=== PATIENT | female | born 1975 | race American Indian/Alaskan Native ===

== ENCOUNTER 2016-12-04 20:37 | Inpatient (IN) | payer OTHER ==
[2016-12-04] MEDS ORDERED: CATAPRES ONE (21:21)
[2016-12-04] MEDS ORDERED: CATAPRES PO ONE (21:26)
[2016-12-04 21:51] LABS: Basophils % (Auto) 0.5 % (0.0-1.8); Eosinophils % (Auto) 0.4 % (0.0-4.3); Hematocrit 41.2 % (30.3-42.9); Hemoglobin 13.2 gm/dl (10.1-14.3); Mean Corpuscular HGB Conc 32 % (30-34); Mean Corpuscular Volume 79 fl (79-97); Platelet Count 325 K/mm3 (140-440); Red Blood Count 5.22 M/mm3 (3.65-5.03); Red Cell Distribution Width 13.9 % (13.2-15.2); White Blood Count 7.8 K/mm3 (4.5-11.0)
[2016-12-04 21:55] LABS: Mean Corpuscular Hemoglobin 25 pg (28-32)
[2016-12-04 22:06] LABS: Anion Gap 17 mmol/L; BUN/Creatinine Ratio 13.75; Blood Urea Nitrogen 11 mg/dL (7-17); Calcium 9.5 mg/dL (8.4-10.2); Carbon Dioxide 26 mmol/L (22-30); Chloride 98.6 mmol/L (98-107); Glucose 102 mg/dL (65-100); Potassium 3.7 mmol/L (3.6-5.0); Sodium 138 mmol/L (137-145)
[2016-12-04 22:34] LABS: Urine Drugs of Abuse Note Disclamer
[2016-12-04 23:05] LABS: Bacteria,Urine 1+ /HPF (Negative); Bilirubin,Urine NEG (Negative); Blood,Urine SM (Negative); Ketones,Urine TR mg/dL (Negative); Leukocyte Esterase,Urine MOD (Negative); Mucus,Urine 3+ /HPF; Nitrite,Urine NEG (Negative)
[2016-12-05 09:02] LABS: Albumin 4.3 g/dL (3.9-5); Albumin/Globulin Ratio 1.4 %; Bilirubin,Direct 0.2 mg/dL (0-0.2); Bilirubin,Indirect 1.2 mg/dL; Bilirubin,Total 1.4 mg/dL (0.1-1.2); Total Protein 7.4 g/dL (6.3-8.2)
[2016-12-05 09:17] LABS: INR 0.96 (0.87-1.13)
[2016-12-05 09:18] LABS: Partial Thromboplastin Time 28.8 Sec. (24.2-36.6)
--- NOTE | 2016-12-05 10:40 | History and Physical Report ---
History of Present Illness Date of examination: 12/05/16 History of present illness: Patient complains of chest tightness involving her left breast. She states that has been intermittent for quite some time. It's been more pronounced last night. However at this time is resolved. Patient admits to long-term depression. She is not having any suicidal thoughts now although she has in the past. She states that she's never had any previous workup for chest pain such as a stress test or hospitalization. She is morbidly obese. Past History Past Medical History: hypertension Medications and Allergies Allergies Allergy/AdvReac Type Severity Reaction Status Date / Time No Known Allergies Allergy Verified 08/30/15 22:09 Home Medications Medication Instructions Recorded Confirmed Last Taken Type No Known Home Medications [No 12/05/16 12/05/16 Unknown History Reported Home Medications] Review of Systems Cardiovascular: chest pain Exam - Constitutional Vitals: Temp Pulse Resp BP Pulse Ox 97.7 F 72 14 110/57 98 12/05/16 08:26 12/05/16 08:26 12/05/16 08:26 12/05/16 08:26 12/05/16 08:26 General appearance: Present: mild distress - EENT Eyes: Present: PERRL, EOM intact ENT: hearing intact, clear oral mucosa - Neck Neck: Present: supple, normal ROM - Respiratory Respiratory effort: normal Respiratory: bilateral: CTA - Cardiovascular Rhythm: regular Heart Sounds: Present: S1 & S2 - Extremities Extremities: no ischemia, No edema - Abdominal General gastrointestinal: Present: soft, non-tender, non-distended, normal bowel sounds - Musculoskeletal Musculoskeletal: strength equal bilaterally - Psychiatric Psychiatric: appropriate mood/affect, intact judgment & insight - Neurologic Neurologic: CNII-XII intact Results - Labs CBC & Chem 7: 12/04/16 21:32 12/04/16 21:32 Labs: Laboratory Last Values WBC 7.8 K/mm3 (4.5-11.0) 12/04/16 21:32 RBC 5.22 M/mm3 (3.65-5.03) H 12/04/16 21:32 Hgb 13.2 gm/dl (10.1-14.3) 12/04/16 21:32 Hct 41.2 % (30.3-42.9) 12/04/16 21:32 MCV 79 fl (79-97) 12/04/16 21: MCH 25 pg (28-32) L 12/04/16 21: MCHC 32 % (30-34) 12/04/16 21: RDW 13.9 % (13.2-15.2) 12/04/16 21: Plt Count 325 K/mm3 (140-440) 12/04/16 21: Lymph % (Auto) 28.6 % (13.4-35.0) 12/04/16 21: [place] % (Auto) 7.7 % (0.0-7.3) H 12/04/16 21: Eos % (Auto) 0.4 % (0.0-4.3) 12/04/16: Baso % (Auto) 0.5 % (0.0-1.8) 12/04/16 21: Lymph # 2.2 K/mm3 (1.2-5.4) 12/04/16 21: [place] # 0.6 K/mm3 (0.0-0.8) 12/04/16 21: Eos # 0.0 K/mm3 (0.0-0.4) 12/04/16: Baso # 0.0 K/mm3 (0.0-0.1) 12/04/16 21: Seg Neutrophils % 62.8 % (40.0-70.0) 12/04/16 21: Seg Neutrophils # 4.9 K/mm3 (1.8-7.7) 12/04/16 21: PT 12.7 Sec. (12.2-14.9) 12/05/16 08:27 INR 0.96 (0.87-1.13) 12/05/16 08:27 APTT 28.8 Sec. (24.2-36.6) 12/05/16 08:27 Potassium 3.7 mmol/L (3.6-5.0) 12/04/16 21: Chloride 98.6 mmol/L (98-107) 12/04/16 21: Carbon Dioxide 26 mmol/L (22-30) 12/04/16 21:32 Anion Gap 17 mmol/L 12/04/16 21:32 BUN 11 mg/dL (7-17) 12/04/16 21:32 Creatinine 0.8 mg/dL (0.7-1.2) 12/04/16 21:32 Estimated GFR > 60 ml/min 12/04/16 21:32 BUN/Creatinine Ratio 13.75 % 12/04/16 21:32 Glucose 102 mg/dL (65-100) H 12/04/16 21:32 Calcium 9.5 mg/dL (8.4-10.2) 12/04/16 21:32 Magnesium 2.0 mg/dL (1.7-2.3) 12/05/16 08:27 Total Bilirubin 1.4 mg/dL (0.1-1.2) H 12/05/16 08:27 Direct Bilirubin 0.2 mg/dL (0-0.2) 12/05/16 08:27 Indirect Bilirubin 1.2 mg/dL 12/05/16 08:27 AST 18 units/L (5-40) 12/05/16 08:27 ALT 20 units/L (7-56) 12/05/16 08:27 Alkaline Phosphatase 72 units/L (35-129) 12/05/16 08:27 Troponin T < 0.010 ng/mL (0.00-0.029) 12/05/16 02:55 NT-Pro-B Natriuret Pep 13.02 pg/mL (0-450) 12/05/16 08:27 Total Protein 7.4 g/dL (6.3-8.2) 12/05/16 08:27 Albumin 4.3 g/dL (3.9-5) 12/05/16 08:27 Albumin/Globulin Ratio 1.4 % 12/05/16 08:27 Urine Color [place] (Yellow) 12/04/16 22:22 Urine Turbidity Cloudy (Clear) 12/04/16 22:22 Urine pH 5.0 (5.0-7.0) 12/04/16 22:22 Ur Specific [place] 1.025 (1.003-1.030) 12/04/16 22:22 Urine Protein 100 mg/dl mg/dL (Negative) 12/04/16 22:22 Urine Glucose (UA) Neg mg/dL (Negative) 12/04/16 22:22 Urine Ketones Tr mg/dL (Negative) 12/04/16 22:22 Urine Blood Sm (Negative) 03/25/17 22:22 Urine Nitrite Neg (Negative) 12/04/16 22:22 Urine Bilirubin Neg (Negative) 12/04/16 22:22 Urine Urobilinogen 2.0 mg/dL (<2.0) 12/04/16 22:22 Ur Leukocyte Esterase Mod (Negative) 12/04/16 22:22 Urine WBC (Auto) 150.0 /HPF (0.0-6.0) H 12/04/16 22:22 Urine RBC (Auto) 125.0 /HPF (0.0-6.0) 12/04/16 22:22 U Epithel Cells (Auto) 18.0 /HPF (0-13.0) H 12/04/16 22:22 Urine Bacteria (Auto) 1+ /HPF (Negative) 12/04/16 22:22 Hyaline Casts 4 /LPF 12/04/16 22:22 Urine Mucus 3+ /HPF 12/04/16 22:22 Urine HCG, Qual Negative (Negative) 12/04/16 22:22 Urine Opiates Screen Presumptive negative 12/04/16 22:22 Urine Methadone Screen Presumptive negative 12/04/16 22:22 Ur Barbiturates Screen Presumptive negative 12/04/16 22:22 Ur Phencyclidine Scrn Presumptive negative 12/04/16 22:22 Ur Amphetamines Screen Presumptive positive 12/04/16 22:22 U Benzodiazepines Scrn Presumptive negative 12/04/16 22:22 Urine Cocaine Screen Presumptive negative 12/04/16 22:22 U Marijuana (THC) Screen Presumptive negative 12/04/16 22:22 Drugs of Abuse Note Disclamer 12/04/16 22:22 Assessment and Plan - Patient Problems (1) Chest pain Current Visit: Yes Status: Acute Qualifiers: Chest pain type: unspecified Qualified Code(s): R07.9 - Chest pain, unspecified Plan to address problem: Admit to Telemetry, Cardiology Consult, Lexiscan, Follow Troponins, ASA Beta- blockers (2) UTI (urinary tract infection) Current Visit: Yes Status: Acute Qualifiers: Urinary tract infection type: site unspecified Hematuria presence: without hematuria Indwelling urinary catheter type: I Encounter type: E Qualified Code(s): N39.0 - Urinary tract infection, site not specified Plan to address problem: Start IV Abx, Follow cultures (3) Malignant hypertension Current Visit: No Status: Acute Plan to address problem: Blood pressure much better controlled after receiving Clonidine
[2016-12-05] MEDS ORDERED: DULCOLAX PR PRN (11:00)
[2016-12-05] MEDS ORDERED: LOVENOX SUB-Q SCH (11:00)
[2016-12-05] MEDS ORDERED: NACL 0.9% 1000 ML 1,000 ML IV SCH (11:00)
[2016-12-05] MEDS ORDERED: PERCOCET 5/325 PO PRN (11:00)
[2016-12-05] MEDS ORDERED: TYLENOL PO PRN (11:00)
[2016-12-05] MEDS ORDERED: SODIUM CHLORIDE FLUSH SYRINGE 10 ML IV PRN (11:00)
[2016-12-05] MEDS ORDERED: MILK OF MAGNESIA PO PRN (11:00)
[2016-12-05] MEDS ORDERED: ZOFRAN IV PRN (11:00)
[2016-12-05] MEDS ORDERED: MORPHINE IV PRN (11:00)
[2016-12-05 12:02] LABS: Creatine Kinase MB 1.1 ng/mL (0.0-4.0)
[2016-12-05 12:03] LABS: Creatine Kinase 71 units/L (30-135)
[2016-12-05] MEDS: LOVENOX SUB-Q SCH (12:34)
--- NOTE | 2016-12-05 13:09 | XRay Report ---
AP CHEST : 12/05/16 CLINICAL: Chest pain. COMPARISON:08/31/15 FINDINGS: Normal heart and pulmonary vessels. The lungs are normally expanded and clear. The bones and soft tissues are unremarkable. IMPRESSION: Normal.
--- NOTE | 2016-12-05 13:22 | Consultation ---
History of Present Illness Consult date: 12/05/16 Consult reason: chest pain History of present illness: Patient is presenting with acute onset chest pain associated with increased anxiety. Patient has been taking ativan for 2-3 months and recently decided to stop doing that. Since then she has been very agitated and has noticed tremors and increased anxiety. ECG is normal. Haylee are normal. UDS is positive for amphetamines although patient denies meth or ectasy abuse. Patient does not take any ADHD medications. Past History Past Medical History: hypertension, other (Anxiety disorder) Past Surgical History: No surgical history Social history: no significant social history Family history: no significant family history Medications and Allergies Allergies Allergy/AdvReac Type Severity Reaction Status Date / Time No Known Allergies Allergy Verified 08/30/15 22:09 Home Medications Medication Instructions Recorded Confirmed Last Taken Type No Known Home Medications [No 12/05/16 12/05/16 Unknown History Reported Home Medications] Active Meds: Active Medications Acetaminophen (Tylenol) 650 mg PO Q4H PRN PRN Reason: Pain MILD(1-3)/Fever >100.5/[place] Aspirin (Ecotrin) 325 mg PO QDAY DEONTE Bisacodyl (Dulcolax) 10 mg NM QDAY PRN PRN Reason: Constipation unrelieved by MOM Enoxaparin Sodium (Lovenox) 40 mg SUB-Q QDAY@1000 DEONTE Last Admin: 12/05/16 12:34 Dose: 40 mg Sodium Chloride (Nacl 0.9% 1000 Ml) 1,000 mls @ 100 mls/hr IV DIRECT DEONTE Magnesium Hydroxide (Milk Of Magnesia) 30 ml PO Q4H PRN PRN Reason: Constipation Morphine Sulfate (Morphine) 2 mg IV Q4H PRN PRN Reason: Pain, Moderate (4-6) Ondansetron HCl (Zofran) 4 mg IV Q8H PRN PRN Reason: N/V unrelieved by Reglan Oxycodone/Acetaminophen (Percocet 5/325) 1 tab PO Q6H PRN PRN Reason: Pain, Moderate (4-6) Sodium Chloride (Sodium Chloride Flush Syringe 10 Ml) 10 ml IV PRN PRN PRN Reason: LINE FLUSH Review of Systems All systems: negative Physical Examination Vital Signs Temp Pulse Resp BP Pulse Ox 98.6 F 116 H 18 190/124 98 12/04/16 21:14 12/04/16 21:14 12/04/16 21:14 12/04/16 21:14 12/04/16 21:14 General appearance: no acute distress HEENT: Positive: PERRL Neck: Positive: neck supple Cardiac: Positive: Reg Rate and Rhythm Lungs: Positive: Normal Exam Abdomen: Positive: Soft Extremities: Present: normal Results 12/04/16 21:32 12/04/16 21:32 Cardiac Enzymes 12/05/16 Range/Units 11:29 CK-MB (CK-2) 1.1 (0.0-4.0) ng/mL Lipids 12/05/16 Range/Units 11:29 Triglycerides 101 (2-149) mg/dL Cholesterol 191 (50-199) mg/dL HDL Cholesterol 38 L (40-59) mg/dL Cholesterol/HDL Ratio 5.02 % EKG interpretations - Telemetry EKG Rhythm: Sinus Rhythm Assessment and Plan Atypical chest pain Normal ECG Negative Haylee Normal MPI and chest CTA in 2014 Systemic Hypertension Morbid obesity Anxiety disorder Benzodiazepine withdrawal UTI Evidence of amphetamine on the urine drug screen Recommendations: Agree with stress testing in am for atypical chest pain Advised against the use of amphetamines
--- NOTE | 2016-12-05 14:10 | Emergency Department Report ---
ED Chest Pain HPI - General Chief Complaint: Chest Pain Stated Complaint: ANXIETY, DEPRESSION, CHEST PAIN Time Seen by Provider: 12/05/16 08:13 Source: patient Mode of arrival: Ambulatory Limitations: No Limitations - History of Present Illness Initial Comments: Patient complains of chest tightness involving her left breast. She states that has been intermittent for quite some time. It's been more pronounced last night. However at this time is resolved. Patient admits to long-term depression. She is not having any suicidal thoughts now although she has in the past. She states that she's never had any previous workup for chest pain such as a stress test or hospitalization. She is morbidly obese. MD Complaint: chest pain -: week(s) Onset: during rest Pain Location: left chest Pain Radiation: none Severity: moderate Quality: tightness Consistency: intermittent, now resolved Improves With: nothing Worsens With: nothing re: nausea, dyspnea. denies: vomting, diaphoresis Other Symptoms: denies: cough, fever, syncope Treatments Prior to Arrival: none - Related Data Home Medications Medication Instructions Recorded Confirmed Last Taken No Known Home Medications [No 12/05/16 12/05/16 Unknown Reported Home Medications] Allergies Allergy/AdvReac Type Severity Reaction Status Date / Time No Known Allergies Allergy Verified 08/30/15 22:09 MADHAVI score - Madhavi Score Age > 65: (0) No Aspirin use within the Past 7 Days: (0) No 3 or more CAD Risk Factors: (1) Yes 2 or more Angina events in past 24 hrs: (0) No Known CAD with more than 50% Stenosis: (0) No Elevated Cardiac Markers: (0) No ST Deviation Greater than 0.5mm: (0) No MADHAVI Score: 1 ED Review of Systems ROS: Stated complaint: ANXIETY, DEPRESSION, CHEST PAIN Other details as noted in HPI Constitutional: denies: chills, fever Eyes: denies: eye pain, eye discharge, vision change ENT: denies: ear pain, throat pain Respiratory: shortness of breath. denies: cough, wheezing Cardiovascular: chest pain. denies: palpitations Endocrine: no symptoms reported Gastrointestinal: denies: abdominal pain, nausea, diarrhea Genitourinary: denies: urgency, dysuria, discharge Musculoskeletal: denies: back pain, joint swelling, arthralgia Skin: denies: rash, lesions Neurological: denies: headache, weakness, paresthesias Psychiatric: depression. denies: anxiety Hematological/Lymphatic: denies: easy bleeding, easy bruising ED Past Medical Hx - Past Medical History Hx Hypertension: Yes Hx Congestive Heart Failure: No Hx Diabetes: No Hx Psychiatric Treatment: Yes (anxiety,depression) Hx Asthma: No Hx COPD: No - Surgical History Additional Surgical History: csection 2004 - Social History Smoking Status: Never Smoker Substance Use Type: None - Medications Home Medications: Home Medications Medication Instructions Recorded Confirmed Last Taken Type No Known Home Medications [No 12/05/16 12/05/16 Unknown History Reported Home Medications] ED Physical Exam - General Limitations: No Limitations General appearance: alert, in no apparent distress - Head Head exam: Present: atraumatic, normocephalic - Eye Eye exam: Present: normal appearance, PERRL, EOMI. Absent: scleral icterus - ENT ENT exam: Present: normal exam, mucous membranes moist - Neck Neck exam: Present: normal inspection. Absent: tenderness, meningismus - Respiratory Respiratory exam: Present: normal lung sounds bilaterally. Absent: respiratory distress - Cardiovascular Cardiovascular Exam: Present: regular rate, normal rhythm. Absent: systolic murmur, diastolic murmur, rubs, gallop - GI/Abdominal GI/Abdominal exam: Present: soft, normal bowel sounds. Absent: distended, tenderness, guarding, rebound, rigid - Extremities Exam Extremities exam: Present: pedal edema. Absent: calf tenderness - Back Exam Back exam: Present: normal inspection - Neurological Exam Neurological exam: Present: alert, oriented X3, CN II-XII intact. Absent: motor sensory deficit - Psychiatric Psychiatric exam: Present: normal affect, normal mood - Skin Skin exam: Present: warm, dry, intact, normal color. Absent: rash ED Course Vital Signs 12/04/16 12/04/16 12/04/16 21:14 21:30 22:56 Temperature 98.6 F 97.6 F Pulse Rate 116 H 116 H 91 H Respiratory 18 18 Rate Blood Pressure 190/124 190/124 155/96 Blood Pressure [Right] O2 Sat by Pulse 98 99 Oximetry 12/05/16 12/05/16 12/05/16 07:42 08:00 08:15 Temperature Pulse Rate 66 Respiratory 20 18 Rate Blood Pressure 113/58 Blood Pressure [Right] O2 Sat by Pulse 99 97 98 Oximetry 0312/05/16 12/05/16 08:26 08:30 09:01 Temperature 97.7 F Pulse Rate 72 76 69 Respiratory 14 9 L 21 Rate Blood Pressure 114/65 114/65 Blood Pressure 110/57 [Right] O2 Sat by Pulse 98 82 L 97 Oximetry 12/05/16 12/05/16 12/05/16 09:31 10:01 10:31 Temperature Pulse Rate 65 65 79 Respiratory 18 19 15 Rate Blood Pressure 114/65 114/65 114/65 Blood Pressure [Right] O2 Sat by Pulse 100 97 96 Oximetry 12/05/16 12/05/16 12/05/16 11:00 11:31 12:00 Temperature Pulse Rate 84 75 69 Respiratory 15 19 19 Rate Blood Pressure 144/77 133/68 143/74 Blood Pressure [Right] O2 Sat by Pulse 98 100 99 Oximetry 12/05/16 12/05/16 12:31 13:01 Temperature Pulse Rate 83 68 Respiratory 10 L 22 Rate Blood Pressure 136/82 124/73 Blood Pressure [Right] O2 Sat by Pulse 97 96 Oximetry ED Medical Decision Making - Lab Data Result diagrams: 12/04/16 21:32 12/04/16 21:32 Laboratory Results - last 24 hr 12/04/16 12/04/16 12/04/16 21:32 21:32 22:22 WBC 7.8 RBC 5.22 H Hgb 13.2 Hct 41.2 MCV 79 MCH 25 L MCHC 32 RDW 13.9 Plt Count 325 Lymph % (Auto) 28.6 [place] % (Auto) 7.7 H Eos % (Auto) 0.4 Baso % (Auto) 0.5 Lymph # 2.2 [place] # 0.6 Eos # 0.0 Baso # 0.0 Seg Neutrophils % 62.8 Seg Neutrophils # 4.9 PT INR APTT Potassium 3.7 Chloride 98.6 Carbon Dioxide 26 Anion Gap 17 BUN 11 Creatinine 0.8 Estimated GFR > 60 BUN/Creatinine Ratio 13.75 Glucose 102 H Calcium 9.5 Magnesium Total Bilirubin Direct Bilirubin Indirect Bilirubin AST ALT Alkaline Phosphatase Total Creatine Kinase CK-MB (CK-2) CK-MB (CK-2) Rel Index Troponin T < 0.010 NT-Pro-B Natriuret Pep Total Protein Albumin Albumin/Globulin Ratio Triglycerides Cholesterol LDL Cholesterol Direct HDL Cholesterol Cholesterol/HDL Ratio Urine Color [place] Urine Turbidity Cloudy Urine pH 5.0 Ur Specific [place] 1.025 Urine Protein 100 mg/dl Urine Glucose (UA) Neg Urine Ketones Tr Urine Blood Sm Urine Nitrite Neg Urine Bilirubin Neg Urine Urobilinogen 2.0 Ur Leukocyte Esterase Mod Urine WBC (Auto) 150.0 H Urine RBC (Auto) 125.0 U Epithel Cells (Auto) 18.0 H Urine Bacteria (Auto) 1+ Hyaline Casts 4 Urine Mucus 3+ Urine HCG, Qual Negative Urine Opiates Screen Urine Methadone Screen Ur Barbiturates Screen Ur Phencyclidine Scrn Ur Amphetamines Screen U Benzodiazepines Scrn Urine Cocaine Screen U Marijuana (THC) Screen Drugs of Abuse Note 12/04/16 12/04/16 12/05/16 22:22 23:07 02:55 WBC RBC Hgb Hct MCV MCH MCHC RDW Plt Count Lymph % (Auto) [place] % (Auto) Eos % (Auto) Baso % (Auto) Lymph # [place] # Eos # Baso # Seg Neutrophils % Seg Neutrophils # PT INR APTT Potassium Chloride Carbon Dioxide Anion Gap BUN Creatinine Estimated GFR BUN/Creatinine Ratio Glucose Calcium Magnesium Total Bilirubin Direct Bilirubin Indirect Bilirubin AST ALT Alkaline Phosphatase Total Creatine Kinase CK-MB (CK-2) CK-MB (CK-2) Rel Index Troponin T < 0.010 < 0.010 NT-Pro-B Natriuret Pep Total Protein Albumin Albumin/Globulin Ratio Triglycerides Cholesterol LDL Cholesterol Direct HDL Cholesterol Cholesterol/HDL Ratio Urine Color Urine Turbidity Urine pH Ur Specific [place] Urine Protein Urine Glucose (UA) Urine Ketones Urine Blood Urine Nitrite Urine Bilirubin Urine Urobilinogen Ur Leukocyte Esterase Urine WBC (Auto) Urine RBC (Auto) U Epithel Cells (Auto) Urine Bacteria (Auto) Hyaline Casts Urine Mucus Urine HCG, Qual Urine Opiates Screen Presumptive negative Urine Methadone Screen Presumptive negative Ur Barbiturates Screen Presumptive negative Ur Phencyclidine Scrn Presumptive negative Ur Amphetamines Screen Presumptive positive U Benzodiazepines Scrn Presumptive negative Urine Cocaine Screen Presumptive negative U Marijuana (THC) Screen Presumptive negative Drugs of Abuse Note Disclamer 12/05/16 12/05/16 12/05/16 08:27 08:27 11:29 WBC RBC Hgb Hct MCV MCH MCHC RDW Plt Count Lymph % (Auto) [place] % (Auto) Eos % (Auto) Baso % (Auto) Lymph # [place] # Eos # Baso # Seg Neutrophils % Seg Neutrophils # PT 12.7 INR 0.96 APTT 28.8 Potassium Chloride Carbon Dioxide Anion Gap BUN Creatinine Estimated GFR BUN/Creatinine Ratio Glucose Calcium Magnesium 2.0 Total Bilirubin 1.4 H Direct Bilirubin 0.2 Indirect Bilirubin 1.2 AST 18 ALT 20 Alkaline Phosphatase 72 Total Creatine Kinase CK-MB (CK-2) CK-MB (CK-2) Rel Index Troponin T NT-Pro-B Natriuret Pep 13.02 Total Protein 7.4 Albumin 4.3 Albumin/Globulin Ratio 1.4 Triglycerides 101 Cholesterol 191 LDL Cholesterol Direct 133 H HDL Cholesterol 38 L Cholesterol/HDL Ratio 5.02 Urine Color Urine Turbidity Urine pH Ur Specific [place] Urine Protein Urine Glucose (UA) Urine Ketones Urine Blood Urine Nitrite Urine Bilirubin Urine Urobilinogen Ur Leukocyte Esterase Urine WBC (Auto) Urine RBC (Auto) U Epithel Cells (Auto) Urine Bacteria (Auto) Hyaline Casts Urine Mucus Urine HCG, Qual Urine Opiates Screen Urine Methadone Screen Ur Barbiturates Screen Ur Phencyclidine Scrn Ur Amphetamines Screen U Benzodiazepines Scrn Urine Cocaine Screen U Marijuana (THC) Screen Drugs of Abuse Note 12/05/16 11:29 WBC RBC Hgb Hct MCV MCH MCHC RDW Plt Count Lymph % (Auto) [place] % (Auto) Eos % (Auto) Baso % (Auto) Lymph # [place] # Eos # Baso # Seg Neutrophils % Seg Neutrophils # PT INR APTT Potassium Chloride Carbon Dioxide Anion Gap BUN Creatinine Estimated GFR BUN/Creatinine Ratio Glucose Calcium Magnesium Total Bilirubin Direct Bilirubin Indirect Bilirubin AST ALT Alkaline Phosphatase Total Creatine Kinase 71 CK-MB (CK-2) 1.1 CK-MB (CK-2) Rel Index 1.5 Troponin T < 0.010 NT-Pro-B Natriuret Pep Total Protein Albumin Albumin/Globulin Ratio Triglycerides Cholesterol LDL Cholesterol Direct HDL Cholesterol Cholesterol/HDL Ratio Urine Color Urine Turbidity Urine pH Ur Specific [place] Urine Protein Urine Glucose (UA) Urine Ketones Urine Blood Urine Nitrite Urine Bilirubin Urine Urobilinogen Ur Leukocyte Esterase Urine WBC (Auto) Urine RBC (Auto) U Epithel Cells (Auto) Urine Bacteria (Auto) Hyaline Casts Urine Mucus Urine HCG, Qual Urine Opiates Screen Urine Methadone Screen Ur Barbiturates Screen Ur Phencyclidine Scrn Ur Amphetamines Screen U Benzodiazepines Scrn Urine Cocaine Screen U Marijuana (THC) Screen Drugs of Abuse Note Sodium 138 - EKG Data -: EKG Interpreted by Me EKG shows normal: sinus rhythm, axis, intervals, QRS complexes, ST-T waves Rate: normal - EKG Data Interpretation: no acute changes - Radiology Data Radiology results: report reviewed interpreted by me: chest x-ray showed no acute process Critical care attestation.: If time is entered above; I have spent that time in minutes in the direct care of this critically ill patient, excluding procedure time. ED Disposition Clinical Impression: Depression Chest pain Qualifiers: Chest pain type: unspecified Qualified Code(s): R07.9 - Chest pain, unspecified Morbid obesity Qualifiers: Obesity type: due to excess calories Qualified Code(s): E66.01 - Morbid (severe ) obesity due to excess calories UTI (urinary tract infection) Qualifiers: Urinary tract infection type: site unspecified Hematuria presence: without hematuria Qualified Code(s): N39.0 - Urinary tract infection, site not specified Disposition: OP ADMITTED IP TO THIS HOSP Is pt being admited?: Yes Does the pt Need Aspirin: Yes Time of Disposition: 14:19
[2016-12-05 15:15] LABS: Creatine Kinase MB 1.1 ng/mL (0.0-4.0)
[2016-12-05 15:16] LABS: Creatine Kinase 67 units/L (30-135)
[2016-12-05] MEDS: MACROBID PO SCH ×2 (17:41→22:16)
[2016-12-05 18:14] LABS: Creatine Kinase MB < 1.0 ng/mL (0.0-4.0)
[2016-12-05 18:38] LABS: Creatine Kinase 64 units/L (30-135)
[2016-12-05] MEDS: COREG PO SCH (22:16)
[2016-12-05] MEDS: LEVAQUIN 500MG/100ML 500 MG/100 ML BAG IV SCH (22:17)
[2016-12-06 05:42] LABS: Basophils % (Auto) 0.5 % (0.0-1.8); Eosinophils % (Auto) 1.4 % (0.0-4.3); Hematocrit 36.4 % (30.3-42.9); Hemoglobin 11.9 gm/dl (10.1-14.3); Mean Corpuscular HGB Conc 33 % (30-34); Mean Corpuscular Volume 79 fl (79-97); Platelet Count 261 K/mm3 (140-440); Red Blood Count 4.64 M/mm3 (3.65-5.03); Red Cell Distribution Width 13.6 % (13.2-15.2)
[2016-12-06 05:58] LABS: Alanine Aminotransferase 21 units/L (7-56); Albumin 3.3 g/dL (3.9-5); Albumin/Globulin Ratio 1.1 %; Alkaline Phosphatase 64 units/L (35-129); Anion Gap 17 mmol/L; BUN/Creatinine Ratio 13.75; Bilirubin,Total 1.1 mg/dL (0.1-1.2); Blood Urea Nitrogen 11 mg/dL (7-17); Calcium 8.6 mg/dL (8.4-10.2); Carbon Dioxide 26 mmol/L (22-30); Chloride 103.1 mmol/L (98-107); Glucose 111 mg/dL (65-100); Potassium 3.2 mmol/L (3.6-5.0); Sodium 143 mmol/L (137-145); Total Protein 6.3 g/dL (6.3-8.2)
[2016-12-06 06:03] LABS: Mean Corpuscular Hemoglobin 26 pg (28-32)
--- NOTE | 2016-12-06 07:48 | Discharge Summary ---
Providers - Providers Date of Admission: 12/05/16 10:41 Date of discharge: 12/06/16 Attending physician: BERTHA MACIAS Primary care physician: [facility] Hospitalization Condition: Stable Hospital course: Patient complains of chest tightness involving her left breast. She states that has been intermittent for quite some time. It's been more pronounced last night. However at this time is resolved. Patient admits to long-term depression. She is not having any suicidal thoughts now although she has in the past. She states that she's never had any previous workup for chest pain such as a stress test or hospitalization. She is morbidly obese. Disposition: DISCHARGED TO HOME OR SELFCARE - Discharge Diagnoses (1) Chest pain Status: Acute Qualifiers: Chest pain type: unspecified Qualified Code(s): R07.9 - Chest pain, unspecified (2) UTI (urinary tract infection) Status: Acute Qualifiers: Urinary tract infection type: site unspecified Hematuria presence: without hematuria Indwelling urinary catheter type: I Encounter type: E Qualified Code(s): N39.0 - Urinary tract infection, site not specified (3) Malignant hypertension Status: Acute Core Measure Documentation - Palliative Care Palliative Care/ Comfort Measures: Not Applicable - Core Measures Any of the following diagnoses?: none Exam - Constitutional Vitals: Temp Pulse Resp BP Pulse Ox 98.1 F 77 20 142/65 96 12/06/16 06:00 12/06/16 06:00 12/06/16 06:00 12/06/16 06:00 12/06/16 06:00 General appearance: Present: no acute distress - EENT Eyes: Present: PERRL, EOM intact ENT: hearing intact, clear oral mucosa - Neck Neck: Present: supple, normal ROM - Respiratory Respiratory effort: normal Respiratory: bilateral: CTA - Cardiovascular Rhythm: regular Heart Sounds: Present: S1 & S2 - Extremities Extremities: no ischemia, No edema - Abdominal General gastrointestinal: Present: soft, non-tender, non-distended, normal bowel sounds - Musculoskeletal Musculoskeletal: strength equal bilaterally - Psychiatric Psychiatric: appropriate mood/affect, intact judgment & insight - Neurologic Neurologic: CNII-XII intact, moves all extremities Plan Activity: advance as tolerated Weight Bearing Status: Weight Bear as Tolerated Diet: low fat, low cholesterol, low salt Follow up with: PRIMARY CARE, [Primary Care Provider] - 7 Days Prescriptions: Aspirin EC [Aspirin Enteric Coated TAB] 325 mg PO QDAY #30 tablet Carvedilol [Coreg] 3.125 mg PO BID #60 tablet LORazepam [Ativan] 0.5 mg PO Q8H PRN #30 tablet PRN Reason: Anxiety oxyCODONE /ACETAMINOPHEN [Percocet 5/325 mg] 1 tab PO Q6H PRN #20 tablet PRN Reason: Pain, Moderate (4-6)
[2016-12-06] MEDS ORDERED: ATIVAN PO PRN (09:29)
[2016-12-06] MEDS ORDERED: LEXISCAN IV NR (09:43)
[2016-12-06] MEDS ORDERED: ECOTRIN PO SCH (10:00)
[2016-12-06 10:51] VITALS: BP 205/112
[2016-12-06] MEDS: LEVAQUIN 500MG/100ML 500 MG/100 ML BAG IV SCH (11:18)
[2016-12-06] MEDS: MACROBID PO SCH (11:18)
[2016-12-06] MEDS: COREG PO SCH (11:19)
[2016-12-06] MEDS: LOVENOX SUB-Q SCH (11:19)
[2016-12-06] MEDS ORDERED: PNEUMOVAX 23 IM ONE (12:00)
[2016-12-06] MEDS ORDERED: FLUARIX QUAD 2016-2017(36 MOS+) IM ONE (12:00)
[2016-12-06] MEDS ORDERED: K-DUR PO ONE (13:30)
--- NOTE | 2016-12-06 13:47 | Admit Criteria Form ---
Admission Criteria Documentation: CARDIOLOGY GRG Clinical Indications for Admission to Inpatient Care ( Place 'X' for any and all applicable criteria): Hospital admission is needed for appropriate care of the patient because of ANY ONE of the following (1): [ ] I. Hemodynamic instability as indicated by ALL of the following (1)(2)(3) (4)(5) [ ]a) Vital signs or other findings not as expected for chronic patient condition or baseline [ ]b) Instability indicated by ANY ONE of the following: [ ]i) Hypotension [ ]ii) Symptomatic Tachycardia unresponsive to treatment ( e.g., analgesia, fluids, sedation as indicated) [ ]iii) Inadequate perfusion indicated by ANY ONE of the following: [ ] 1) Lactic acidosis (> 2 mmol/L) [ ] 2) New abnormal capillary refill (> 3 seconds) [ ] 3) Reduced urine output [ ] 4) New altered mental status [ ]iv) Orthostatic vital sign changes unresponsive to treatment (e.g., fluids) [ ]v) IV inotropic or vasopressor medication required to maintain adequate blood pressure or perfusion [ ] II. Severe heart failure as indicated by ANY ONE of the following(17)(18) [ ]a) Respiratory distress [ ]b) Hypotension [ ]c) Anasarca (refractory to outpatient therapy) [ ]d) Cardiac arrhythmias of immediate concern [ ]e) Myocardial ischemia [ ] III. Cardiac arrhythmias or findings of immediate concern indicated by ANY ONE of the following (19)(20): [ ] a) Heart rhythms that are inherently dangerous or unstable indicated by ANY ONE of the following (21)(22)(23): [ ] i) Resuscitated ventricular fibrillation or cardiac arrest [ ] ii) Ventricular escape rhythm [ ] iii) Sustained ventricular tachycardia (30 seconds or more of ventricular rhythm at greater than 100 beats per minute) [ ] iv) Nonsustained ventricular tachycardia and ANY ONE of the following: [ ] 1) Suspected cardiac ischemia as cause or consequence of ventricular tachycardia [ ] 2) In setting of acute myocarditis [ ] b) Unstable cardiac conduction defects indicated by ANY ONE of the following(23)(24)(25) [ ] i) Type II second-degree atrioventricular block [ ]ii) Third-degree atrioventricular block [ ]iii) New-onset left bundle branch block with suspected myocardial ischemia [ ]c) Any heart rhythm and ANY ONE of the following (21)(22)(26)(27) (28) [ ] i) Continuous long-term ECG monitoring needed (e.g., initiation of drug requiring monitoring for more than 24 hours) [ ] ii) Patient has automatic implanted cardioverter defibrillator that is repeatedly firing, malfunctioning, or in need of immediate adjustment of settings beyond the scope of ambulatory or observation care [ ]d) Heart rhythms of concern due to ANY ONE of the following: [ ] i) Hypotension [ ] ii) Respiratory distress [ ] iii) Association with other significant symptoms (e.g., bradycardia with syncope or ongoing dizziness, supraventricular tachycardia with chest pain (14)(15)(17) [ ] IV. Monitoring for cardiac contusion beyond the scope of observation care needed [A](30)(31)(32) [ ] V. Surgical or device complication (e.g., valve replacement complication , pacemaker dysfunction) (35)(41)(44)(45)(46) [ ] . Inpatient palliative care needed. [B](49) Also use Inpatient Palliative Care Criteria [ ] VII. Nonbacterial thrombotic (marantic) endocarditis (36)(43)(47)(48) [X] VIII. Cardiology condition, symptom, or finding for which emergency and observation care has failed or are not considered appropriate. [ ] IX. Acute valvular disease requiring inpatient as indicated by ANY ONE of the following (41) [ ]a) Acute valvular regurgitation (42) [ ]b) Noninfectious valvulitis (43) [ ]c) Obstructive valve thrombosis [ ]d) Paravalvular leak [ ]e) Other significant valvular disorder remaining after emergency or observation level of care (as appropriate) [ ]X. Pericardial disease requiring inpatient treatment as indicated by ANY ONE of the following (33)(34)(35)(36)(37) [ ]a) Suspected tamponade (38)(39)(40) [ ]b) Hemopericardium [ ]c) Other significant pericardial disorder remaining after emergency or observation level of care (as appropriate) [ ] XI. Cardiac ischemia beyond scope of emergency and observation care. [ ] XII. Hypertension requiring inpatient treatment as indicated by ANY ONE of the following (6)(7)(8) [ ]a) SBP greater than 220 mm Hg or DBP greater than 120 mmHg despite treatment [ ]b) SBP greater than 140 mm Hg or DBP greater than 100 mm Hg with evidence of acute end organ damage as indicated by ANY ONE of the following [ ] i) Altered mental status [ ] ii) Acute renal failure as indicated by new onset of ANY ONE of the following (9)(10)(11)(12)(13) [ ]1) 3-fold rise in serum creatinine from baseline [ ]2) Serum creatinine greater than 4 mg/dL ( 354 micromoles/L) with acute rise greater than 0.5 mg/dL (44.2 micromoles/L) [ ]3) Reduction of more than 75% in estimated glomerular filtration rate from baseline [ ]4) Estimated glomerular filtration rate less than 35 mL/min/1.73m2 (0.59 mL/sec/1.73m2) in child up to 18 years of age [ ]5) Cessation of urine output indicated by ALL of the following [ ]A. Adequate volume status [ ]B. Inadequate urine output as indicated by ANY ONE of the following [ ]a. Urine output less than 0.3 mL/kg/hr for 24 hours [ ]b. Anuria (urine output less than 0.1 mL/kg/hr) for 12 hours [ ] iii) Aortic dissection [ ] iv) Myocardial Ischemia [ ] v) Left ventricular heart failure [ ]vi) Retinal Hemorrhage [ ]vii) Other significant finding [ ]c) Hypertension in child requiring inpatient treatment as indicated by ALL of the following(14)(15)(16) [ ] i) Outpatient treatment not effective, not available, or not appropriate [ ]ii) SBP or DBP greater than 95th percentile for age [ ]iii) Evidence of acute end organ damage as indicated by ANY ONE of the following [ ]1) Altered mental status [ ]2) Acute renal failure as indicated by new onset of ANY ONE of the following(9)(10)(11)(12)(13) [ ]A. 3-fold rise in serum creatinine from baseline [ ]B. Serum creatinine greater than 4 mg/dL (354 micromoles/L) with acute rise greater than 0.5 mg/dL (44.2 micromoles/L) [ ]C. Reduction of more than 75% in estimated glomerular filtration rate from baseline [ ]D. Estimated glomerular filtration rate less than 35 mL/min/1.73m2 (0.59 mL/sec/1.73m2) in child up to 18 years of age [ ]E. Cessation of urine output indicated by ALL of the following [ ]a. Adequate volume status [ ]b. Inadequate urine output as indicated by ANY ONE of the following [ ]i) Urine output less than 0.3 mL/kg/hr for 24 hours [ ]ii) Anuria ( urine output less than 0.1 mL/kg/hr) for 12 hours [ ]3) Severe headache [ ]4) Visual disturbance [ ]5) Retinal hemorrhage [ ]6) Other significant finding [ ]XIII. Complications of transplanted heart indicated by ANY ONE of the following(61): [ ]a) Acute graft rejection requiring inpatient management (eg, intravenous immunosuppression)(62)(63) [ ]b) Acute graft heart failure indicated by ANY ONE of the following(64): [ ]i) Hemodynamic instability [ ]ii) Cardiac arrhythmias of immediate concern [ ]iii) Pulmonary edema that is very severe (eg, mechanical ventilation needed, imminent or likely, need for 100% oxygen to keep oxygen saturation above 90%) [ ]iv) Pulmonary edema that is persistent as indicated by ALL of the following: [ ]1) New need for oxygen therapy to keep oxygen saturation above 90% (or increased FiO2 need from baseline) [ ]2) Has not improved sufficiently with emergency department or observation care IV diuretics or other heart failure treatments[E] [ ]v) Altered mental status that is severe or persistent [ ]vi) Increased creatinine (new on laboratory test) with reduction of more than 50% in estimated glomerular filtration rate from baseline [ ]vii) Progressively (ongoing) rising creatinine (known from past laboratory test) with reduction of more than 25% in estimated glomerular filtration rate from baseline [ ]viii) Acute renal failure [ ]ix) Acute peripheral ischemia (eg, examination shows pulseless, cool, mottled, or cyanotic extremity) [ ]x) Pulmonary artery catheter monitoring needed [ ]xi) Other sign or symptom of heart failure requiring inpatient treatment (ie, too severe or not responsive to outpatient and observation care treatment) [ ]c) Infection requiring inpatient management (eg, Hemodynamic instability, need for intravenous antimicrobial treatment)(66)(67)(68)(69)(70) [ ]d) Cardiac allograft vasculopathy requiring inpatient management ( eg evidence of cardiac ischemia)(71) [ ]e) Other complication of transplanted heart (eg, stroke, severe pulmonary hypertension, severe valvular dysfunction) requiring inpatient management(72) The original [facility] [employer] content created by [employer] has been revised. The portions of the content which have been revised are identified through the use of italic text or in bold, and [facility] has neither reviewed nor approved the modified material. All other unmodified content is copyright [facility] [employer]. Please see references footnoted in the original [facility] [employer] edition 2016 Admission Criteria Met: Yes
--- NOTE | 2016-12-06 14:14 | Progress Note ---
Assessment and Plan - Patient Problems (1) Chest pain Current Visit: Yes Status: Acute Qualifiers: Chest pain type: unspecified Qualified Code(s): R07.9 - Chest pain, unspecified Plan to address problem: Normal pers thallium stress. OK for cardiac discharge. Return to ER for recurrent CP. Subjective Date of service: 12/06/16 Interval history: Persantine thallium stress was normal. Objective Vital Signs Temp Pulse Pulse Resp BP BP Pulse Ox 12/06/16 10:05 96 H 205/112 12/06/16 10:04 99 H 212/113 12/06/16 10:03 101 H 202/103 12/06/16 10:02 105 H 202/113 12/06/16 10:01 115 H 229/119 12/06/16 10:00 75 239/105 12/06/16 09:47 80 197/103 12/06/16 08:00 98.6 F 77 16 176/95 100 12/06/16 06:00 98.1 F 77 20 142/65 96 12/06/16 01:01 85 12/06/16 01:00 98 F 79 20 123/64 96 12/05/16 22:16 78 149/77 12/05/16 22:00 78 18 12/05/16 20:00 97.4 F L 73 20 159/74 97 12/05/16 18:39 83 - Physical Examination General: Appears Well, No Apparent Distress HEENT: Positive: PERRL Neck: Positive: neck supple Cardiac: Positive: Reg Rate and Rhythm Lungs: Positive: Decreased Breath Sounds Neuro: Positive: Grossly Intact Abdomen: Positive: Soft Skin: Positive: Clear Extremities: Absent: edema - Labs and Meds Cardiac Enzymes 12/05/16 12/05/16 12/06/16 Range/Units 14:36 17:31 04:45 AST 17 (5-40) units/L CK-MB (CK-2) 1.1 < 1.0 (0.0-4.0) ng/mL CBC 12/06/16 Range/Units 04:45 WBC 7.0 (4.5-11.0) K/mm3 RBC 4.64 (3.65-5.03) M/mm3 Hgb 11.9 (10.1-14.3) gm/dl Hct 36.4 (30.3-42.9) % Plt Count 261 (140-440) K/mm3 Lymph # 3.1 (1.2-5.4) K/mm3 [place] # 0.7 (0.0-0.8) K/mm3 Eos # 0.1 (0.0-0.4) K/mm3 Baso # 0.0 (0.0-0.1) K/mm3 Comprehensive Metabolic Panel 12/06/16 Range/Units 04:45 Sodium 143 (137-145) mmol/L Potassium 3.2 L (3.6-5.0) mmol/L Chloride 103.1 (98-107) mmol/L Carbon Dioxide 26 (22-30) mmol/L BUN 11 (7-17) mg/dL Creatinine 0.8 (0.7-1.2) mg/dL Glucose 111 H (65-100) mg/dL Calcium 8.6 (8.4-10.2) mg/dL AST 17 (5-40) units/L ALT 21 (7-56) units/L Alkaline Phosphatase 64 (35-129) units/L Total Protein 6.3 (6.3-8.2) g/dL Albumin 3.3 L (3.9-5) g/dL
--- NOTE | 2016-12-07 00:17 | Treadmill Report ---
THALLIUM STRESS TEST LEFT VENTRICLE: Left ventricular chamber size is within normal. Perfusion study demonstrates homogeneous uptake of the tracer in all segments. No significant perfusion defects identified. Gated analysis demonstrates normal left ventricular systolic function, ejection fraction 73%. CONCLUSION: Normal myocardial perfusion study. JOB# [id number] CA/NTS
== END 2016-12-06 15:25 | disposition home or self-care (01) | DRG 313 ==
LOC: ED 20:37 → 4A 12-05 10:41
PROVIDERS: ADMIT Internal Medicine; ATTEND Internal Medicine
DX: R07.89 Other chest pain (principal); N39.0 Urinary tract infection, site not specified; Z68.43 Body mass index [BMI] 50.0-59.9, adult; I10 Essential (primary) hypertension; F32.9 Major depressive disorder, single episode, unspecified; F41.9 Anxiety disorder, unspecified; E66.01 Morbid (severe) obesity due to excess calories; Z23 Encounter for immunization
CPT/HCPCS: 36415; 71010; 78452; 80048; 80053; 80061; 80074; 80307; 81001; 81025; 82550; 82553; 83735; 83880; 84484; 85025; 85610; 85730; 87086; 90686; 90732; 93005; 93010; 93017; 96372; A9502; J1650; J1956; J2270; J2785; J7030

== ENCOUNTER 2018-03-31 06:03 | Emergency (ER) | payer OTHER ==
[2018-03-31 06:57] LABS: Basophils # (Auto) 0.1 K/mm3 (0.0-0.1); Basophils % (Auto) 0.9 % (0.0-1.8); Eosinophils # (Auto) 0.1 K/mm3 (0.0-0.4); Eosinophils % (Auto) 1.1 % (0.0-4.3); Hematocrit 43.1 % (30.3-42.9); Hemoglobin 14.2 gm/dl (10.1-14.3); Lymphocytes # (Auto) 2.7 K/mm3 (1.2-5.4); Lymphocytes % (Auto) 35.5 % (13.4-35.0); Mean Corpuscular HGB Conc 33 % (30-34); Mean Corpuscular Volume 79 fl (79-97); Monocytes # (Auto) 0.6 K/mm3 (0.0-0.8); Monocytes % (Auto) 7.2 % (0.0-7.3); Platelet Count 345 K/mm3 (140-440); Red Blood Count 5.49 M/mm3 (3.65-5.03); Red Cell Distribution Width 13.6 % (13.2-15.2)
[2018-03-31 06:58] LABS: Mean Corpuscular Hemoglobin 26 pg (28-32)
[2018-03-31 07:13] LABS: BUN/Creatinine Ratio 10; Blood Urea Nitrogen 7 mg/dL (7-17); Calcium 9.1 mg/dL (8.4-10.2); Hemolysis Index 8
[2018-03-31 07:28] LABS: Chol/HDL Ratio 4.69 %; HDL Cholesterol 42 mg/dL (40-59); LDL Cholesterol,Direct 149 mg/dL (50-130)
[2018-03-31] MEDS ORDERED: CATAPRES PO ONE (08:13)
[2018-03-31] MEDS ORDERED: XANAX PO ONE (08:13)
--- NOTE | 2018-03-31 08:40 | XRay Report ---
ROUTINE CHEST, TWO VIEWS: HISTORY: Left-sided chest pain. The trachea, heart, mediastinal contour, lung desouza and bony thorax are unremarkable. IMPRESSION: Unremarkable chest x-ray. No significant change since 12/05/16.
[2018-03-31 09:02] LABS: Creatine Kinase MB 1.3 ng/mL (0.0-4.0)
--- NOTE | 2018-03-31 09:25 | Emergency Department Report ---
ED Chest Pain HPI - General Chief Complaint: Chest Pain Stated Complaint: ANXIETY ATTACK, CHEST PAIN Time Seen by Provider: 03/31/18 07:50 Source: patient, old records reviewed Mode of arrival: Ambulatory Limitations: No Limitations - History of Present Illness Initial Comments: 42-year-old female the past medical history of obesity, hypertension, and anxiety presents to the hospital with complaints of left-sided chest pain since last night. Pain is described as a constant pressure. Patient also has history of anxiety and states that her pain is worse when her anxiety increases. With her anxiety she is also experiencing shortness of breath and nausea with initial diaphoresis that hasn't reoccurred. She denies vomiting, cough, fever, calf tenderness, recent travel, history of PE status DVT, or control pill use. Upon previous smoker record review patient was admitted here 11/29/2016 with a similar presentation. At that time she was also withdrawing from benzodiazepines. Patient denies recent benzodiazepines and has been noncompliant with blood pressure medication due to lack of insurance. Patient had a negative stress tests during this admission. As per medical record patient's UDS was positive for amphetamines in the past although patient denied drug use or use of ADHD related medication. Severity scale (0 -10): 5 - Related Data Home Medications Medication Instructions Recorded Confirmed Last Taken Vit B12/Levomefolate/Vit B6/B2 1 each PO DAILY 03/31/18 03/31/18 03/30/18 [Cerefolin Caplet] Previous Rx's Medication Instructions Recorded Last Taken Type Sulfamethoxazole/Trimethoprim 1 each PO BID #6 tablet 03/31/18 Unknown Rx [Bactrim DS TAB] amLODIPine [Norvasc] 10 mg PO DAILY #30 tab 03/31/18 Unknown Rx hydrOXYzine PAMOATE [Vistaril] 50 mg PO Q6HR PRN #30 capsule 03/31/18 Unknown Rx Allergies Allergy/AdvReac Type Severity Reaction Status Date / Time No Known Allergies Allergy Verified 03/31/18 06:28 Heart Score - HEART Score History: Slightly suspicious EKG: Normal Age: < 45 Risk factors: 1-2 risk factors Troponin: < normal limit HEART Score: 1 ED Review of Systems ROS: Stated complaint: ANXIETY ATTACK, CHEST PAIN Other details as noted in HPI Comment: All other systems reviewed and negative ED Past Medical Hx - Past Medical History Hx Hypertension: Yes Hx Congestive Heart Failure: No Hx Diabetes: No Hx Psychiatric Treatment: Yes (anxiety,depression) Hx Asthma: No Hx COPD: No - Surgical History Additional Surgical History: csection 2005 - Social History Smoking Status: Never Smoker Substance Use Type: None - Medications Home Medications: Home Medications Medication Instructions Recorded Confirmed Last Taken Type Sulfamethoxazole/Trimethoprim 1 each PO BID #6 tablet 03/31/18 Unknown Rx [Bactrim DS TAB] Vit B12/Levomefolate/Vit B6/B2 1 each PO DAILY 03/31/18 03/31/18 03/30/18 History [Cerefolin Caplet] amLODIPine [Norvasc] 10 mg PO DAILY #30 tab 03/31/18 Unknown Rx hydrOXYzine PAMOATE [Vistaril] 50 mg PO Q6HR PRN #30 capsule 03/31/18 Unknown Rx ED Physical Exam - General Limitations: No Limitations - Other Other exam information: General: No limitations, patient is alert in no acute distress Head exam: Atraumatic, normocephalic Eyes exam: Normal appearance ENT: Moist mucous membrane, normal oropharynx Neck exam: Normal inspection, full range of motion, no meningismus nontender Respiratory exam: Clear to auscultation bilateral, no wheezes, rales, crackles Cardiovascular: Normal rate and rhythm, reproducible left-sided chest wall tenderness Abdomen: Soft, nondistended, and nontender, with normal bowel sounds, no rebound, or guarding Extremity: Full range of motion normal inspection no deformity, no calf tenderness or edema Back: Normal Inspection, full range of motion, no tenderness Neurologic: Alert, oriented x3, cranial nerves intact, no motor or sensory deficit Psychiatric: normal affect, normal mood Skin: Warm, dry, intact ED Course Vital Signs 03/31/18 03/31/18 03/31/18 06:03 08:24 08:53 Temperature 98.5 F Pulse Rate 102 H 77 Respiratory 18 19 Rate Blood Pressure 185/110 155/91 Blood Pressure 155/91 [Right] O2 Sat by Pulse 95 98 Oximetry 03/31/18 03/31/18 03/31/18 09:16 09:42 10:27 Temperature Pulse Rate 78 71 Respiratory 19 17 Rate Blood Pressure Blood Pressure 140/65 128/65 125/81 [Right] O2 Sat by Pulse 95 98 Oximetry 03/31/18 03/31/18 03/31/18 11:24 11:59 12:56 Temperature Pulse Rate 71 78 79 Respiratory 18 19 18 Rate Blood Pressure Blood Pressure 130/70 120/73 137/89 [Right] O2 Sat by Pulse 98 99 98 Oximetry - Reevaluation(s) Reevaluation #1: 03/31/18 09:25 Clonidine 0.1 mg ordered based on initial blood pressure. Blood pressure had significantly decreased and I canceled the clonidine order. Nurse still gave clonidine therefore patient being monitored for continued drop in blood pressure. Heart rate also improved spontaneously. Patient given 1 dose of Xanax 1 mg for her anxiety complaint MADHAIV score - Madhavi Score Age > 65: (0) No Aspirin use within the Past 7 Days: (0) No 3 or more CAD Risk Factors: (1) Yes 2 or more Angina events in past 24 hrs: (0) No Known CAD with more than 50% Stenosis: (0) No Elevated Cardiac Markers: (0) No ST Deviation Greater than 0.5mm: (0) No MADHAVI Score: 1 ED Medical Decision Making - Lab Data Result diagrams: 03/31/18 06:49 03/31/18 06:46 Lab Results 03/31/18 03/31/18 03/31/18 Range/Units 06:46 06:46 06:49 WBC 7.7 (4.5-11.0) K/mm3 RBC 5.49 H (3.65-5.03) M/mm3 Hgb 14.2 (10.1-14.3) gm/dl Hct 43.1 H (30.3-42.9) % MCV 79 (79-97) fl MCH 26 L (28-32) pg MCHC 33 (30-34) % RDW 13.6 (13.2-15.2) % Plt Count 345 (140-440) K/mm3 Lymph % (Auto) 35.5 H (13.4-35.0) % [place] % (Auto) 7.2 (0.0-7.3) % Eos % (Auto) 1.1 (0.0-4.3) % Baso % (Auto) 0.9 (0.0-1.8) % Lymph # 2.7 (1.2-5.4) K/mm3 [place] # 0.6 (0.0-0.8) K/mm3 Eos # 0.1 (0.0-0.4) K/mm3 Baso # 0.1 (0.0-0.1) K/mm3 Seg Neutrophils % 55.3 (40.0-70.0) % Seg Neutrophils # 4.3 (1.8-7.7) K/mm3 D-Dimer (0-234) ng/mlDDU Sodium 139 (137-145) mmol/L Potassium 3.4 L (3.6-5.0) mmol/L Chloride 96.6 L (98-107) mmol/L Carbon Dioxide 28 (22-30) mmol/L Anion Gap 18 mmol/L BUN 7 (7-17) mg/dL Creatinine 0.7 (0.7-1.2) mg/dL Estimated GFR > 60 ml/min BUN/Creatinine Ratio 10 % Glucose 131 H (65-100) mg/dL Calcium 9.1 (8.4-10.2) mg/dL Magnesium 1.80 (1.7-2.3) mg/dL Total Creatine Kinase (30-135) units/L CK-MB (CK-2) (0.0-4.0) ng/mL CK-MB (CK-2) Rel Index (0-4) Troponin T 0.037 H (0.00-0.029) ng/mL Triglycerides 82 (2-149) mg/dL Cholesterol 197 (50-199) mg/dL LDL Cholesterol Direct 149 H (50-130) mg/dL HDL Cholesterol 42 (40-59) mg/dL Cholesterol/HDL Ratio 4.69 % HCG, Qual (Negative) Urine Color (Yellow) Urine Turbidity (Clear) Urine pH (5.0-7.0) Ur Specific [place] (1.003-1.030) Urine Protein (Negative) mg/dL Urine Glucose (UA) (Negative) mg/dL Urine Ketones (Negative) mg/dL Urine Blood (Negative) Urine Nitrite (Negative) Urine Bilirubin (Negative) Urine Urobilinogen (<2.0) mg/dL Ur Leukocyte Esterase (Negative) Urine WBC (Auto) (0.0-6.0) /HPF Urine RBC (Auto) (0.0-6.0) /HPF U Epithel Cells (Auto) (0-13.0) /HPF Urine Bacteria (Auto) (Negative) /HPF Urine Mucus /HPF Urine Opiates Screen Urine Methadone Screen Ur Barbiturates Screen Ur Phencyclidine Scrn Ur Amphetamines Screen U Benzodiazepines Scrn Urine Cocaine Screen U Marijuana (THC) Screen Drugs of Abuse Note Plasma/Serum Alcohol (0-0.07) % 03/31/18 03/31/18 03/31/18 Range/Units 07:52 08:05 08:05 WBC (4.5-11.0) K/mm3 RBC (3.65-5.03) M/mm3 Hgb (10.1-14.3) gm/dl Hct (30.3-42.9) % MCV (79-97) fl MCH (28-32) pg MCHC (30-34) % RDW (13.2-15.2) % Plt Count (140-440) K/mm3 Lymph % (Auto) (13.4-35.0) % [place] % (Auto) (0.0-7.3) % Eos % (Auto) (0.0-4.3) % Baso % (Auto) (0.0-1.8) % Lymph # (1.2-5.4) K/mm3 [place] # (0.0-0.8) K/mm3 Eos # (0.0-0.4) K/mm3 Baso # (0.0-0.1) K/mm3 Seg Neutrophils % (40.0-70.0) % Seg Neutrophils # (1.8-7.7) K/mm3 D-Dimer (0-234) ng/mlDDU Sodium (137-145) mmol/L Potassium (3.6-5.0) mmol/L Chloride (98-107) mmol/L Carbon Dioxide (22-30) mmol/L Anion Gap mmol/L BUN (7-17) mg/dL Creatinine (0.7-1.2) mg/dL Estimated GFR ml/min BUN/Creatinine Ratio % Glucose (65-100) mg/dL Calcium (8.4-10.2) mg/dL Magnesium (1.7-2.3) mg/dL Total Creatine Kinase 180 H (30-135) units/L CK-MB (CK-2) 1.3 (0.0-4.0) ng/mL CK-MB (CK-2) Rel Index 0.7 (0-4) Troponin T (0.00-0.029) ng/mL Triglycerides (2-149) mg/dL Cholesterol (50-199) mg/dL LDL Cholesterol Direct (50-130) mg/dL HDL Cholesterol (40-59) mg/dL Cholesterol/HDL Ratio % HCG, Qual Negative (Negative) Urine Color (Yellow) Urine Turbidity (Clear) Urine pH (5.0-7.0) Ur Specific [place] (1.003-1.030) Urine Protein (Negative) mg/dL Urine Glucose (UA) (Negative) mg/dL Urine Ketones (Negative) mg/dL Urine Blood (Negative) Urine Nitrite (Negative) Urine Bilirubin (Negative) Urine Urobilinogen (<2.0) mg/dL Ur Leukocyte Esterase (Negative) Urine WBC (Auto) (0.0-6.0) /HPF Urine RBC (Auto) (0.0-6.0) /HPF U Epithel Cells (Auto) (0-13.0) /HPF Urine Bacteria (Auto) (Negative) /HPF Urine Mucus /HPF Urine Opiates Screen Urine Methadone Screen Ur Barbiturates Screen Ur Phencyclidine Scrn Ur Amphetamines Screen U Benzodiazepines Scrn Urine Cocaine Screen U Marijuana (THC) Screen Drugs of Abuse Note Plasma/Serum Alcohol < 0.01 (0-0.07) % 03/31/18 03/31/18 03/31/18 Range/Units 08:37 09:30 09:30 WBC (4.5-11.0) K/mm3 RBC (3.65-5.03) M/mm3 Hgb (10.1-14.3) gm/dl Hct (30.3-42.9) % MCV (79-97) fl MCH (28-32) pg MCHC (30-34) % RDW (13.2-15.2) % Plt Count (140-440) K/mm3 Lymph % (Auto) (13.4-35.0) % [place] % (Auto) (0.0-7.3) % Eos % (Auto) (0.0-4.3) % Baso % (Auto) (0.0-1.8) % Lymph # (1.2-5.4) K/mm3 [place] # (0.0-0.8) K/mm3 Eos # (0.0-0.4) K/mm3 Baso # (0.0-0.1) K/mm3 Seg Neutrophils % (40.0-70.0) % Seg Neutrophils # (1.8-7.7) K/mm3 D-Dimer 152.90 (0-234) ng/mlDDU Sodium (137-145) mmol/L Potassium (3.6-5.0) mmol/L Chloride (98-107) mmol/L Carbon Dioxide (22-30) mmol/L Anion Gap mmol/L BUN (7-17) mg/dL Creatinine (0.7-1.2) mg/dL Estimated GFR ml/min BUN/Creatinine Ratio % Glucose (65-100) mg/dL Calcium (8.4-10.2) mg/dL Magnesium (1.7-2.3) mg/dL Total Creatine Kinase (30-135) units/L CK-MB (CK-2) (0.0-4.0) ng/mL CK-MB (CK-2) Rel Index (0-4) Troponin T (0.00-0.029) ng/mL Triglycerides (2-149) mg/dL Cholesterol (50-199) mg/dL LDL Cholesterol Direct (50-130) mg/dL HDL Cholesterol (40-59) mg/dL Cholesterol/HDL Ratio % HCG, Qual (Negative) Urine Color Yellow (Yellow) Urine Turbidity Cloudy (Clear) Urine pH 7.0 (5.0-7.0) Ur Specific [place] 1.004 (1.003-1.030) Urine Protein <15 mg/dl (Negative) mg/dL Urine Glucose (UA) Neg (Negative) mg/dL Urine Ketones Neg (Negative) mg/dL Urine Blood Sm (Negative) Urine Nitrite Neg (Negative) Urine Bilirubin Neg (Negative) Urine Urobilinogen < 2.0 (<2.0) mg/dL Ur Leukocyte Esterase Lg (Negative) Urine WBC (Auto) 69.0 H (0.0-6.0) /HPF Urine RBC (Auto) 42.0 (0.0-6.0) /HPF U Epithel Cells (Auto) 16.0 H (0-13.0) /HPF Urine Bacteria (Auto) 3+ (Negative) /HPF Urine Mucus Few /HPF Urine Opiates Screen Presumptive negative Urine Methadone Screen Presumptive negative Ur Barbiturates Screen Presumptive negative Ur Phencyclidine Scrn Presumptive negative Ur Amphetamines Screen Presumptive negative U Benzodiazepines Scrn Presumptive negative Urine Cocaine Screen Presumptive negative U Marijuana (THC) Screen Presumptive negative Drugs of Abuse Note Disclamer Plasma/Serum Alcohol (0-0.07) % 03/31/18 03/31/18 Range/Units 09:32 12:15 WBC (4.5-11.0) K/mm3 RBC (3.65-5.03) M/mm3 Hgb (10.1-14.3) gm/dl Hct (30.3-42.9) % MCV (79-97) fl MCH (28-32) pg MCHC (30-34) % RDW (13.2-15.2) % Plt Count (140-440) K/mm3 Lymph % (Auto) (13.4-35.0) % [place] % (Auto) (0.0-7.3) % Eos % (Auto) (0.0-4.3) % Baso % (Auto) (0.0-1.8) % Lymph # (1.2-5.4) K/mm3 [place] # (0.0-0.8) K/mm3 Eos # (0.0-0.4) K/mm3 Baso # (0.0-0.1) K/mm3 Seg Neutrophils % (40.0-70.0) % Seg Neutrophils # (1.8-7.7) K/mm3 D-Dimer (0-234) ng/mlDDU Sodium (137-145) mmol/L Potassium (3.6-5.0) mmol/L Chloride (98-107) mmol/L Carbon Dioxide (22-30) mmol/L Anion Gap mmol/L BUN (7-17) mg/dL Creatinine (0.7-1.2) mg/dL Estimated GFR ml/min BUN/Creatinine Ratio % Glucose (65-100) mg/dL Calcium (8.4-10.2) mg/dL Magnesium (1.7-2.3) mg/dL Total Creatine Kinase (30-135) units/L CK-MB (CK-2) (0.0-4.0) ng/mL CK-MB (CK-2) Rel Index (0-4) Troponin T 0.038 H < 0.010 (0.00-0.029) ng/mL Triglycerides (2-149) mg/dL Cholesterol (50-199) mg/dL LDL Cholesterol Direct (50-130) mg/dL HDL Cholesterol (40-59) mg/dL Cholesterol/HDL Ratio % HCG, Qual (Negative) Urine Color (Yellow) Urine Turbidity (Clear) Urine pH (5.0-7.0) Ur Specific [place] (1.003-1.030) Urine Protein (Negative) mg/dL Urine Glucose (UA) (Negative) mg/dL Urine Ketones (Negative) mg/dL Urine Blood (Negative) Urine Nitrite (Negative) Urine Bilirubin (Negative) Urine Urobilinogen (<2.0) mg/dL Ur Leukocyte Esterase (Negative) Urine WBC (Auto) (0.0-6.0) /HPF Urine RBC (Auto) (0.0-6.0) /HPF U Epithel Cells (Auto) (0-13.0) /HPF Urine Bacteria (Auto) (Negative) /HPF Urine Mucus /HPF Urine Opiates Screen Urine Methadone Screen Ur Barbiturates Screen Ur Phencyclidine Scrn Ur Amphetamines Screen U Benzodiazepines Scrn Urine Cocaine Screen U Marijuana (THC) Screen Drugs of Abuse Note Plasma/Serum Alcohol (0-0.07) % - EKG Data -: EKG Interpreted by Me (lae?) EKG shows normal: sinus rhythm, axis (qrs 17), QRS complexes (qrsd 96), ST-T waves (no stemi/t inv) Rate: normal (97) - EKG Data When compared to previous EKG there are: no significant change - Radiology Data Radiology results: report reviewed ROUTINE CHEST, TWO VIEWS: HISTORY: Left-sided chest pain. The trachea, heart, mediastinal contour, lung desouza and bony thorax are unremarkable. IMPRESSION: Unremarkable chest x-ray. No significant change since 12/05/16. - Medical Decision Making Patient's chest pain is atypical and reproducible. D-dimer negative. Patient initially had elevated troponin however, this was thought to be due to a lab error and once corrected the troponin is negative. EKG unchanged. negative stress test last year. Patient be discharged home with symptomatic treatment for anxiety and chest wall pain. Blood pressure medication will be started. Blood pressure remained stable and improved after clonidine 0.1 mg. Follow-up will be encouraged. Patient received by mouth potassium for mild hypokalemia and will be treated for UTI although likely a contaminated sample given elevated epithelial cells - Differential Diagnosis OR, PE, costochondritis, anxiety, pneumothorax Critical Care Time: No Critical care attestation.: If time is entered above; I have spent that time in minutes in the direct care of this critically ill patient, excluding procedure time. ED Disposition Clinical Impression: Chest wall pain, Morbid obesity, Chronic hypertension, Hypokalemia, UTI ( urinary tract infection), Anxiety Disposition: TO HOME OR SELFCARE Is pt being admited?: No Does the pt Need Aspirin: No Condition: Stable Instructions: Chest Pain (ED), Hypertension (ED), Anxiety (ED), Urinary Tract Infection in Women (ED), Hypokalemia (ED) Additional Instructions: Take the medication as prescribed. Return if symptoms worsen. It is very important that you follow up with a primary care doctor and a psychiatrist for further management of your chronic medical conditions. Please return is symptoms worsen as indicated by your discharge instructions. Prescriptions: amLODIPine [Norvasc] 10 mg PO DAILY #30 tab hydrOXYzine PAMOATE [Vistaril] 50 mg PO Q6HR PRN #30 capsule PRN Reason: Anxiety Sulfamethoxazole/Trimethoprim [Bactrim DS TAB] 1 each PO BID #6 tablet Referrals: [facility] [Outside] - 3-5 Days [facility] [Provider Group] - 3-5 Days (Primary care clinic) TIMMY ESPOSITO JR, MD [Staff Physician] - 3-5 Days (Primary care doctor) Time of Disposition: 13:06
[2018-03-31 10:15] LABS: Bacteria,Urine 3+ /HPF (Negative); Bilirubin,Urine NEG (Negative); Blood,Urine SM (Negative); Color,Urine Yellow (Yellow); Mucus,Urine FEW /HPF; Protein,Urine <15 mg/dL mg/dL (Negative); Urobilinogen,Urine < 2.0 mg/dL (<2.0)
[2018-03-31 10:21] LABS: Amphetamine Screen,Urine PRESUMPTIVE NEGATIVE; Benzodiazepines Screen,Urine PRESUMPTIVE NEGATIVE; Cannabinoid Screen,Urine PRESUMPTIVE NEGATIVE; Cocaine Screen,Urine PRESUMPTIVE NEGATIVE; Methadone Screen,Urine PRESUMPTIVE NEGATIVE; Opiate Screen,Urine PRESUMPTIVE NEGATIVE
[2018-03-31] MEDS ORDERED: K-DUR PO ONE (10:28)
[2018-03-31 12:59] VITALS: BP 137/89
== END 2018-03-31 13:21 | disposition home or self-care (01) ==
LOC: ED 06:03
DX: F41.9 Anxiety disorder, unspecified (principal); F32.9 Major depressive disorder, single episode, unspecified; N39.0 Urinary tract infection, site not specified; E87.6 Hypokalemia; I10 Essential (primary) hypertension; E66.01 Morbid (severe) obesity due to excess calories
CPT/HCPCS: 36415; 71046; 80048; 80061; 80307; 81001; 82550; 82553; 83735; 84484; 84703; 85025; 85379; 93005; 93010; 99284; G0480; 80320